=== PATIENT | male | born 1980 | race Caucasian/White ===

== ENCOUNTER 2023-05-31 10:28 | Emergency (ER) | payer BC ==
--- NOTE | 2023-05-31 11:00 | ED ---
Chest Pain HPI - General Source: patient, RN notes reviewed Mode of arrival: ambulatory Limitations: no limitations - History of Present Illness MD Complaint: chest pain <Cheryl Cochran - Last Filed: 05/31/23 10:57> <Marcus Ortiz - Last Filed: 05/31/23 13:08> - General Chief Complaint: Chest Pain Stated Complaint: chest pain Time Seen by Provider: 05/31/23 10:55 - History of Present Illness Initial Comments: This is a 42-year-old male who presents to the emergency department for chest pain. States that it has been present for the last 1-2 weeks. This is described as a centralized pressure or squeezing sensation. Reports intermittent shortness of breath as well. Denies any personal or family history of cardiac problems. (Cheyrl Cochran) - Related Data Allergies Allergy/AdvReac Type Severity Reaction Status Date / Time No Known Allergies Allergy Verified 05/31/23 10:46 Review of Systems ROS Other: All systems not noted in ROS Statement are negative. <Cheryl Cochran - Last Filed: 05/31/23 10:57> ROS Other: All systems not noted in ROS Statement are negative. <Marcus Ortiz - Last Filed: 05/31/23 13:08> ROS Statement: Those systems with pertinent positive or pertinent negative responses have been documented in the HPI. Past Medical History Past Medical History: No Reported History Past Surgical History: Hernia Repair Past Psychological History: No Psychological Hx Reported Smoking Status: Never smoker Past Alcohol Use History: Occasional Past Drug Use History: None Reported <Cheryl Cochran - Last Filed: 05/31/23 10:57> General Exam Limitations: no limitations <Cheryl Cochran - Last Filed: 05/31/23 10:57> General appearance: alert, in no apparent distress Head exam: Present: atraumatic, normocephalic Eye exam: Present: normal appearance, PERRL ENT exam: Present: normal exam Neck exam: Present: normal inspection Respiratory exam: Present: normal lung sounds bilaterally. Absent: respiratory distress, wheezes Cardiovascular Exam: Present: regular rate, normal rhythm GI/Abdominal exam: Present: soft. Absent: distended, tenderness, guarding Neurological exam: Present: alert, oriented X3, CN II-XII intact. Absent: motor sensory deficit Psychiatric exam: Present: normal affect, normal mood Skin exam: Present: warm, dry, intact <Marcus Ortiz - Last Filed: 05/31/23 13:08> - General Exam Comments Initial Comments: Visual Physical Exam Vital signs reviewed General: Well-appearing, nontoxic, no acute distress. Head: Normocephalic, atraumatic Eyes: PERRLA, EOMI ENT: Airway patent Chest: Nonlabored breathing Skin: No visual rash, normal skin tone Neuro: Alert and oriented 3 Musculoskeletal: No gross abnormalities (Cheryl Cochran) Course Vital Signs 05/31/23 10:43 Temperature 98 F Pulse Rate 67 Respiratory 18 Rate Blood Pressure 135/85 O2 Sat by Pulse 99 Oximetry Chest Pain MDM <Cheryl Cochran - Last Filed: 05/31/23 10:57> <Marcus Ortiz - Last Filed: 05/31/23 13:08> - MDM I performed the QuickNote portion of this chart. Signed Cheryl Cochran PA-C. (Cheryl Cochran) Was pt. sent in by a medical professional or institution ([facility], CLINICAL NURSE REVIEWER, urgent care, hospital, or fci...) When possible be specific @ -No Did you speak to anyone other than the patient for history (EMS, parent, family, police, friend...)? What history was obtained from this source @ -No Did you review nursing and triage notes (agree or disagree)? Why? @ -I reviewed and agree with nursing and triage notes Were old charts reviewed (outside hosp., previous admission, EMS record, old EKG, old radiological studies, urgent care reports/EKG's, fci records)? Report findings @ -No old charts were reviewed Differential Diagnosis (chest pain, altered mental status, abdominal pain women, abdominal pain men, vaginal bleeding, weakness, fever, dyspnea, syncope, headache, dizziness, GI bleed, back pain, seizure, CVA, palpatations, mental health, musculoskeletal)? @ -[Differential Chest Pain: Stable Angina, Unstable Angina, STEMI, NSTEMI Aortic Dissection, Pneumothorax, Musculoskeletal, Esophageal Spasm GERD, Cholecystitis, Pancreatitis, Zoster, this is not meant to be an all-inclusive list. EKG interpreted by me (3pts min.). @ -[Sinus rhythm rate of 64, HI interval 155, QRS duration 87, QTC [address] segment elevation. T waves are upright. X-rays interpreted by me (1pt min.). @ -chest x-ray negative for acute cardio pulmonary findings. CT interpreted by me (1pt min.). @ -None done U/S interpreted by me (1pt. min.). @ -None done What testing was considered but not performed or refused? (CT, X-rays, U/S, labs)? Why? @ -None What meds were considered but not given or refused? Why? @ -None Did you discuss the management of the patient with other professionals (professionals i.e. , PA, CLINICAL NURSE REVIEWER, lab, RT, psych nurse, oncology social work, eligibility services representative, teacher, operations officer afloat, case preparer and liner)? Give summary @ -No Was smoking cessation discussed for >3mins.? @ -No Was critical care preformed (if so, how long)? @ -No Were there social determinants of health that impacted care today? How? (Homelessness, low income, unemployed, alcoholism, drug addiction, transportation, low edu. Level, literacy, decrease access to med. care, custodial, rehab)? @ -No Was there de-escalation of care discussed even if they declined (Discuss DNR or withdrawal of care, Hospice)? DNR status @ -No What co-morbidities impacted this encounter? (DM, HTN, Smoking, COPD, CAD, Cancer, CVA, ARF, Chemo, Hep., AIDS, mental health diagnosis, sleep apnea, morbid obesity)? @ -None Was patient admitted / discharged? Hospital course, mention meds given and route, prescriptions, significant lab abnormalities, going to OR and other pertinent info. @ 42-year-old female presenting for evaluation of chest pain which is been present for the past several weeks. Not associated with vomiting or diaphoresis. No prior history of CAD. EKG is sinus rhythm without ST segment elevation. Chest x-ray is negative. He has a normal CBC, normal CMP, negative d-dimer, negative troponin. Patient is stable for outpatient follow-up. He will follow with his primary care provider and with cardiology. Strict return parameters discussed. Undiagnosed new problem with uncertain prognosis? @ -No Drug Therapy requiring intensive monitoring for toxicity (Heparin, Nitro, Insulin, Cardizem)? @ -No Were any procedures done? @ -No Diagnosis/symptom? @ -Chest pain Acute, or Chronic, or Acute on Chronic? @ Acute Uncomplicated (without systemic symptoms) or Complicated (systemic symptoms)? @ Uncomplicated Side effects of treatment? @ -No Exacerbation, Progression, or Severe Exacerbation? @ -No Poses a threat to life or bodily function? How? (Chest pain, [place], [place], pneumonia, PE, COPD, DKA, ARF, appy, cholecystitis, CVA, Diverticulitis, Homicidal, Suicidal, threat to staff... and all critical care pts) @ -[Low risk at this time (Marcus Ortiz) Disposition <Cheryl Cochran - Last Filed: 05/31/23 10:57> Is patient prescribed a controlled substance at d/c from ED?: No Time of Disposition: 13:07 <Marcus Ortiz - Last Filed: 05/31/23 13:08> Clinical Impression: Chest pain Disposition: HOME SELF-CARE Condition: Good Instructions (If sedation given, give patient instructions): Chest Pain (ED) Referrals: Amrita Das DO [Primary Care Provider] - 1-2 days Shaw Arvizu MD [STAFF PHYSICIAN] - 1-2 days
[2023-05-31 11:14] LABS: Basophils % (A) 0 %; Eosinophils # (A) 0.3 k/uL (0-0.7); Eosinophils % (A) 5 %; HCT 43.6 % (39.0-53.0); HGB 14.9 gm/dL (13.0-17.5); Lymphocytes # (A) 1.9 k/uL (1.0-4.8); Lymphocytes % (A) 32 %; MCH 30.5 pg (25.0-35.0); MCHC 34.1 g/dL (31.0-37.0); MCV 89.3 fL (80.0-100.0); Mean Platelet Volume 9.5; Monocytes # (A) 0.3 k/uL (0-1.0); Monocytes % (A) 6 %; Neutrophils # (A) 3.2 k/uL (1.3-7.7); Neutrophils % (A) 54 %; Platelet Count 166 k/uL (150-450); RBC 4.88 m/uL (4.30-5.90); RDW 13.4 % (11.5-15.5)
[2023-05-31 11:30] LABS: ALT 39 U/L (4-49); AST 34 U/L (17-59); African American GFR (CKD) >90 (>60 ml/min/1.73 sqM); Albumin 4.6 g/dL (3.5-5.0); Alkaline Phosphatase 64 U/L (38-126); Anion Gap 7 mmol/L; Blood Urea Nitrogen 14 mg/dL (9-20); Calcium 9.4 mg/dL (8.4-10.2); Carbon Dioxide 26 mmol/L (22-30); Chloride 105 mmol/L (98-107); Glucose 75 mg/dL (74-99); Magnesium 2.1 mg/dL (1.6-2.3); Non-African American GFR(CKD) >90 (>60 ml/min/1.73 sqM); Sodium 138 mmol/L (137-145); Total Bilirubin 1.1 mg/dL (0.2-1.3); Total Protein 7.6 g/dL (6.3-8.2)
[2023-05-31 11:37] LABS: INR 0.9 (<1.2); Partial Thromboplastin Time 24.5 sec (22.0-30.0); Prothrombin Time 10.4 sec (10.0-12.5)
--- NOTE | 2023-05-31 12:00 | XR ---
EXAMINATION TYPE: XR chest 2V DATE OF EXAM: 05/31/2023 11:53 AM CLINICAL INDICATION:Male, 42 years old with history of Chest Pain; [facility] COMPARISON: None TECHNIQUE: XR chest 2V Frontal and lateral views of the chest. FINDINGS: Lungs/Pleura: There is no evidence of pleural effusion, focal consolidation, or pneumothorax. Pulmonary vascularity: Unremarkable. Heart/mediastinum: Cardiomediastinal silhouette is unremarkable. Musculoskeletal: No acute osseous pathology. Other findings: None IMPRESSION: No acute cardiopulmonary disease/process.
[2023-05-31 13:25] VITALS: BP 130/82; PULSE 74; RESP 16; TEMP 98.7
== END 2023-05-31 14:01 | disposition home or self-care (01) ==
LOC: EC 10:28
DX: R07.89 Other chest pain (principal); Z20.822 Contact with and (suspected) exposure to COVID-19
CPT/HCPCS: 36415; 71046; 80053; 83735; 84484; 85025; 85379; 85610; 85730; 87636; 93005; 99285

== ENCOUNTER → 2023-06-06 | Outpatient (CLI) | payer BC ==
--- NOTE | 2023-06-06 12:41 | CA ---
Exercise Stress Test Report Name: Jorgito Triana Exam Date: 06/06/2023 09:30 Exam Location: [place] Stress Ht (in): 71 Wt (lb): 185 BSA: 2.04 Ordering Phys: Amrita Das DO Referring Phys: Evita Maurer [facility] Technologist: Santi Avila Age: 42 Gender: M : 1980 Procedure CPT: Indications: R07.9 Chest Pain R06.00 Dyspnea ICD-10 Codes: Patient History: CHEST PAIN, DIFFICULTY IN BREATHING, PALPITATIONS, NUMBNESS IN FACE/NECK Medications: NONE,,,,, Meds past 24 hrs: Pretest Chest Pain: STRESS TEST Jose Alejandro Protocol Exercise Duration (min:sec): 10:[address] Depressions (mm): Angina Score: Santos Score: Resting HR (bpm): 67 Peak HR (bpm): 193 Resting BP (mmHg): 127 / 88 Peak BP (mmHg): 143 / 72 MPHR: 177 Target HR: 150 % MPHR: 109 METS: 12.1 Total Dose: Peak Dose: Atropine: Double Product: 73378 BP Response: Stress Termination: TARGET HR/MAX EXERTION Stress Symptoms: NO SYMPTOMS Stress Summary: ECG ANALYSIS Resting ECG: Stress ECG: CONCLUSIONS Good exercise tolerance EKG changes in response to exercise Please follow-up on the Cardiolite portion on a separate report from radiology department Dr. Sandor House MD (Electronically Signed) Final Date: 06 June 2023 12:41
--- NOTE | 2023-06-06 17:36 | NM ---
EXAMINATION TYPE: NM stress cardiolite complete DATE OF EXAM: 06/06/2023 COMPARISON: NONE CLINICAL INDICATION: Male, 42 years old with history of R07.9 R06.00; TECHNIQUE: After the intravenous administration of 9.8 mCi Tc 99m Sestamibi - Rest images obtained 6 0 minutes post injection. The patient exercised using a JESSIE protocol and 1 minute prior to peak e xercise was injected with 26 mCi Tc 99m Sestamibi - Stress images obtained 10 minutes post injection. FINDINGS: Targeted heart rate (150 BPM) was achieved during performance of the study (193 bpm achieved). Total exercise time 10 minutes 11 seconds. Review of stress and rest SPECT images demonstrates fixed perfus ion defect along the inferior wall. No discrete reversibility is identified. Gated analysis shows nor mal wall motion with an estimated left ventricular ejection fraction of 64 %. TID is calculated at 0 .86, within normal limits. IMPRESSION: Fixed defect along the inferior wall could reflect prior infarct. Diaphragmatic attenuati on artifact is felt to be more likely. Clinically correlate. No scintigraphic evidence for inducible ischemia.
== END | disposition home or self-care (01) ==
LOC: RADNMMAIN 07:38
PROVIDERS: ATTEND Family Medicine
DX: R07.9 Chest pain, unspecified (principal); R06.00 Dyspnea, unspecified; R00.2 Palpitations; R06.02 Shortness of breath
CPT/HCPCS: 93017; 78452; A9500